=== PATIENT | male | born 1995 | race African-American/Black ===

== ENCOUNTER 2022-09-10 21:00 | Emergency (ER) | payer OTHER ==
[~2022-09-10] VITALS: Ht 182.9 cm; Wt 74.8 kg
[2022-09-10 21:07] VITALS: BP 135/79; PULSE 91; RESP 20; TEMP 98; O2SAT 99
--- NOTE | 2022-09-10 21:17 | NUR ---
FATHER AT THE BEDSIDE
--- NOTE | 2022-09-10 21:19 | NUR ---
PT TAKEN TO BED 2
--- NOTE | 2022-09-10 21:31 | NUR ---
Patient resting in bed, A/Ox4, chest rise and fall symmetrical, no s/s of distress, on monitor.
[2022-09-10] MEDS ORDERED: KETOROLAC 15 MG/ML VIAL IVP ONE (22:15)
[2022-09-10] MEDS ORDERED: NACL 0.9% 1,000 ML IV ONE ×2 (22:15→23:40)
[2022-09-10] MEDS ORDERED: ONDANSETRON 4 MG/2 ML VIAL IVP ONE (22:15)
[2022-09-10 22:30] LABS: BASOPHILS % (AUTO) 0.3 % (0.0-2.0); EOSINOPHILS % (AUTO) 0.3 % (0.0-4.0); HEMATOCRIT 46.7 % (36-52); HEMOGLOBIN 16.3 g/dL (12.0-18.0); LYMPHOCYTES # (AUTO) 1.4 K/uL (2.0-11.5); LYMPHOCYTES % (AUTO) 15.9 % (20.5-51.1); MEAN CORPUSCULAR HEMOGLOBIN 31 pg (27-31); MEAN CORPUSCULAR HGB CONC 35 g/dL (33-37); MONOCYTES # (AUTO) 0.9 K/uL (0.8-1.0); MONOCYTES % (AUTO) 10.6 % (1.7-9.3); NEUTROPHILS # (AUTO) 6.3 K/uL (1.8-7.7); NEUTROPHILS % (AUTO) 72.9 % (42.2-75.2); PLATELET COUNT (AUTO) 394 K/uL (140-450); RED BLOOD CELL COUNT(AUTO) 5.18 MIL/uL (4.20-6.10); RED CELL DISTRIBUTION WIDTH 13.1 % (11.6-13.7); WHITE BLOOD COUNT (AUTO) 8.7 K/uL (4.8-10.8)
[2022-09-10 22:48] LABS: ALBUMIN 4.3 g/dL (3.4-5.0); ANION GAP 13.2 (8-16); CARBON DIOXIDE 25.6 mmol/L (21-32); CREATININE 0.8 mg/dL (0.6-1.3); POTASSIUM 3.8 mmol/L (3.5-5.1); TOTAL BILIRUBIN 0.8 mg/dL (0.0-1.0)
[2022-09-10 23:16] LABS: APPEARANCE,URINE CLEAR (CLEAR); BILIRUBIN,URINE 1+ (NEGATIVE); BLOOD, URINE NEGATIVE (NEGATIVE); COLOR,URINE YELLOW (YELLOW); LEUKOCYTE ESTERASE ,URINE NEGATIVE (NEGATIVE); NITRITE, URINE NEGATIVE (NEGATIVE); UGLUCOSE NEGATIVE (NEGATIVE)
[2022-09-10 23:26] LABS: BARBITURATE, URINE NEGATIVE ng/ml (NEG <=200); BENZODIAZEPINE, URINE NEGATIVE ng/mL (NEG <=200); CANNABINOID, URINE POSITIVE ng/mL (NEG <=50); COCAINE, URINE NEGATIVE ng/mL (NEG <=300); OPIATE, URINE POSITIVE ng/mL (NEG <=2000); PHENCYCLIDINE SCREEN,URINE NEGATIVE ng/mL (NEG <=25)
[2022-09-11] MEDS ORDERED: MORPHINE SULFATE 2 MG/ML SYR IVP STA (00:07)
--- NOTE | 2022-09-11 00:10 | NUR ---
Patient resting in bed, A/Ox4, chest rise and fall symmetrical, no s/s of distress, on monitor.
--- NOTE | 2022-09-11 01:35 | NUR ---
Patient resting in bed, A/Ox4, chest rise and fall symmetrical, no c/o pain or s/s of distress, on monitor.
[2022-09-11] MEDS ORDERED: BEN10 PO ×2 (01:50→02:08)
[2022-09-11] MEDS ORDERED: ONDA-188 PO ×2 (01:50→02:08)
[2022-09-11] MEDS ORDERED: HYDR-5191 PO ×2 (01:50→02:08)
[2022-09-11] MEDS ORDERED: MAG-27 PO ×2 (01:50→02:08)
[2022-09-11 01:57] VITALS: BP 119/86; PULSE 81; RESP 18; TEMP 98.3; O2SAT 99
== END 2022-09-11 01:57 | disposition home or self-care (01) ==
LOC: MED 21:00
DX: K85.90 Acute pancreatitis without necrosis or infection, unspecified (principal); R10.13 Epigastric pain; Z88.0 Allergy status to penicillin; Z88.1 Allergy status to other antibiotic agents; Z88.8 Allergy status to other drugs, medicaments and biological substances; Z79.899 Other long term (current) drug therapy
CPT/HCPCS: 36415; 80053; 80305; 81003; 83690; 85025; 96361; 96374; 96375; 99284; J1885; J2270; J2405; J7030

== ENCOUNTER 2023-02-23 13:55 | Emergency (ER) | payer OTHER ==
[~2023-02-23] VITALS: Ht 182.9 cm; Wt 74.8 kg
[~2023-02-23 13:55] MED LIST: BEN10 PO; HYDR-5191 PO; MAG-27 PO; ONDA-188 PO
[2023-02-23 14:11] VITALS: BP 124/67; PULSE 79; RESP 16; TEMP 97.8; O2SAT 100
[2023-02-23] MEDS ORDERED: KETOROLAC 30 MG/ML VIAL IM ONE (15:35)
[2023-02-23] MEDS ORDERED: DEXAMETHASONE 10 MG/ML VIAL IM ONE (15:35)
[2023-02-23] MEDS ORDERED: methocarbamoL 500 MG TAB PO ONE (15:35)
[2023-02-23] MEDS ORDERED: CRUSHER, PILL MC ONE (15:39)
[2023-02-23 16:06] VITALS: BP 120/70; PULSE 85; RESP 13; TEMP 97.8; O2SAT 100
[2023-02-23] MEDS ORDERED: IBUP-2213 PO (16:06)
[2023-02-23] MEDS ORDERED: METH-1681 PO (16:06)
[2023-02-23] MEDS ORDERED: LID5T TP (16:06)
== END 2023-02-23 16:06 | disposition home or self-care (01) ==
LOC: MED 13:55
DX: M54.16 Radiculopathy, lumbar region (principal); Z79.899 Other long term (current) drug therapy; Z79.1 Long term (current) use of non-steroidal anti-inflammatories (NSAID); Z88.0 Allergy status to penicillin; Z88.8 Allergy status to other drugs, medicaments and biological substances
CPT/HCPCS: 96372; 99284; J1100; J1885